=== PATIENT | female | born 1975 | race Caucasian/White ===

== ENCOUNTER 2021-04-19 14:51 | Outpatient (CLI) | payer BC, SELFPAY ==
--- NOTE | ~2021-04-19 | US_ITS ---
EXAMINATION: US soft tissue lower back DATE: 04/19/2021 15:51 INDICATION: Benign lipomatous neoplasm of skin and subcutaneous. Right lower back mass. TECHNIQUE: Multiple grayscale and Doppler ultrasound images of the lower back were obtained. COMPARISON: None FINDINGS: There is a 3.0 x 2.2 x 1.2 cm subcutaneous mass in the right lower back that demonstrates e qual echogenicity and echotexture to normal subcutaneous fat. IMPRESSION: 1. 3.0 cm subcutaneous mass in right lower back, likely a lipoma. Reviewed, dictated and finalized at location A. DEALER
== END 2021-04-19 14:52 | disposition home or self-care (01) ==
LOC: ANHIMG 15:00
PROVIDERS: PCP Family Medicine; Visit Provider Nurse Practitioner Family
DX: D17.1 Benign lipomatous neoplasm of skin and subcutaneous tissue of trunk (principal)
CPT/HCPCS: 76705

== ENCOUNTER 2021-05-12 09:37 | Outpatient (CLI) | payer BC, SELFPAY ==
[2021-05-12 10:50] LABS: Anion Gap 9 mmol/L (8-16); Blood Urea Nitrogen 12 mg/dL (7-17); Calcium 9.3 mg/dL (8.4-10.2); Carbon Dioxide 30 mmol/L (22-30); Chloride 100 mmol/L (98-107); Estimated Glomerular Filt Rate > 60; Glucose 92 mg/dL (65-110); Potassium 3.9 mmol/L (3.4-5.0); Sodium 139 mmol/L (137-145)
== END 2021-05-12 09:38 | disposition home or self-care (01) ==
LOC: ANHSURGERY 09:41
PROVIDERS: Anesthesiology; PCP Family Medicine; Visit Provider Surgery
DX: Z79.899 Other long term (current) drug therapy (principal); Z01.818 Encounter for other preprocedural examination
CPT/HCPCS: 36415; 80048

== ENCOUNTER 2021-05-19 01:04 | Day surgery (SDC) | payer BC, SELFPAY ==
[2021-05-11 14:07] VITALS: BMI 32.9
--- NOTE | 2021-05-11 14:25 | PC.NURSE ---
Report to the Outpatient Waiting Room, entrance under the green pavilion located off [facility], at time 11:30 on date 05/19/21. OR Time: 1:30. - You will be asked a series of questions to screen for COVID 19 for your protection. - A mask is required within the hospital. - No visitors are allowed at this time. Preoperative COVID Testing Requirements: No COVID Test needed if: (proof is required; if not received patient will have Rapid Test prior to entry) - Patient has received COVID Vaccine at least 14 days prior to procedure date or - Patient has positive COVID test result within last 90 days of surgery date. Patients may have clear liquids (water, carbonated beverages, clear teas, apple juice) until 3 hours prior to surgery (10:30) with a maximum of 20 ounces. - No food from midnight until time of surgery - Infants may have breast milk until 4 hours before surgery, infant formula 6 hours prior to surgery. Take the following medications with a SIP of water the morning of surgery: LEVOTHYROXINE, TOPIRAMATE Medications to discontinue per physician: VITAMINS/SUPPLEMENTS Date to take last dose: 05/15/21 Please no make-up, nail ukrainian, hairspray, perfume, deodorant, or body powder the day of surgery. No jewelry (including any body piercings) or valuables the day of surgery, leave them at home. Please take a shower or bath the night before, or the morning of, surgery with an antibacterial soap. Wear comfortable, loose fitting clothing. - Jewelry must be removed prior to entering the operating room. Rings and piercings that are not removed may be cut off. - The hospital will not accept responsibility for valuables. - Please leave all valuables, including medications, at home the day of surgery. If you are going home after surgery, a licensed over the road driver must drive you home. - NO public transportation without another adult. - We recommend that an adult stay with you for 24 hours following discharge. - We also recommend that you do not drive, make important decision, drink alcoholic beverages, or take any drugs that were not prescribed by your health care provider for at least 24 hours after your discharge time. Follow any additional instructions given to you from your surgeon. Telephone instructions given to ALEX KELLY and asked if any additional questions and then verbalized understanding. Patient advised to call surgeon office or pre surgery nurse liaison [phone] if any additional questions.
[2021-05-19 10:40] VITALS: BP 122/76; PULSE 55; RESP 16; TEMP 37.3; O2SAT 100
--- NOTE | 2021-05-19 11:30 | WPDANESEPPF ---
Anes - Initial Pre Proc Eval Procedure: Operation Date: 05/19/21 12:00 Proposed Procedures p Excisional Biopsy of Lower Right Back Mass - Siria Villeda MD Date/Time: 05/19/21 11:30 Surgeon: Siria Villeda MD Pre Op Diagnosis: right lower back mass (4x3cm) Patient Data Age: 45 Gender: F Height: 1.59 m Weight: 78.7 kg Last Vital Signs Temp 37.3 C 05/19/21 10:40 Pulse 55 L 05/19/21 10:40 Resp 16 05/19/21 10:40 BP 122/76 05/19/21 10:40 Pulse Ox 100 05/19/21 10:40 Allergies Allergy/AdvReac Type Severity Reaction Status Date / Time cefixime Allergy Unknown Rash Verified 05/19/21 10:11 clarithromycin Allergy Unknown Rash Verified 05/19/21 10:11 erythromycin base Allergy Unknown Rash Verified 05/19/21 10:11 levofloxacin Allergy Unknown Rash Verified 05/19/21 10:11 Penicillins Allergy Unknown Rash Verified 05/19/21 10:11 Home Medications Medication Instructions Recorded Confirmed Type levothyroxine 137 mcg tablet 137 mcg PO DAILY #90 tablet 02/21/21 05/19/21 Rx triamterene 75 See Rx Instructions .ROUTE 02/21/21 05/19/21 Rx mg-hydrochlorothiazide 50 mg tablet .COMPLEX #90 tablet lysine 500 mg PO DAILY 05/11/21 05/19/21 History omeprazole 20 mg PO DAILY 05/11/21 05/19/21 History topiramate 50 mg PO DAILY 05/11/21 05/19/21 History Patient hx anesthesia problems: post op nausea/vomiting Family hx anesthesia problems: none Results Review: All pre-operative results and documents have been reviewed as part of the pre-operative evaluation. [facility] Past Medical History Medical History BMI 33.0-33.9,adult BMI greater than 30 GERD (gastroesophageal reflux disease) Hx of migraines Hyperlipidemia Hypothyroidism, unspecified Pulmonary embolism Surgical History Surgical History H/O abdominoplasty H/O breast augmentation H/O tubal ligation Family History Family History Grandparent Cerebrovascular accident Family history of malignant neoplasm No family history of hypertension Father Family history of diabetes mellitus in first degree relative Diabetes mellitus Mother Diverticulitis Sibling Anxiety Social History Social History Social History: caffeine use: tea Smoking status: Never smoker Second hand tobacco smoke exposure: No Alcohol intake: current Alcohol use details: A COUPLE EVERY OTHER WEEKEND Substance use: never Substance use type: does not use Living arrangements: with family 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 Informed Consent: The patient's anesthetic plan and its attendant risks and benefits were discussed with the patient/family/POA. Questions were solicited and answers provided to the satisfaction of the patient/family/POA.
[2021-05-19] MEDS: SCOPOLAMINE 1.5 MG PATCH TRANSDERM (11:39)
--- NOTE | 2021-05-19 11:54 | WPDHPUPDATE1 ---
History and Physical Update Update Date/Time: 05/19/21 11:54 History and Physical has been reviewed, including an updated exam of the patient. There are NO changes in the patient's condition. Risks, benefits, and alternatives have been discussed and questions answered. Patient agrees to proceed with procedure.
[2021-05-19] MEDS: CLINDAMYCIN 900 MG/D5W 50 ML 900 MG/50 ML PIGGYBACK 50 MG IVPB (12:00)
[2021-05-19 12:43] VITALS: BP 102/75; PULSE 69; RESP 16; O2SAT 100
[2021-05-19 13:10] VITALS: BP 129/73; PULSE 55; RESP 16
--- NOTE | 2021-05-19 13:11 | W.PM.PROC2 ---
Procedure Note - Detailed Date of Procedure 05/19/21 Pre-op Diagnosis right lower back mass (4x3cm) Post-op Diagnosis same Procedure Performed Excisional biopsy right lower back mass, multi lobular lipoma involving the right lower back musculature Surgeon Siria Villeda MD Anesthesia MAC and local Indications 45-year-old female with moderate sized right lower back mass causing discomfort especially with certain movements Findings multi lobular lipoma imbedded within muscle Description of Procedure The patient was taken to the operating room and placed in the lateral position. After adequate induction of MAC anesthesia, the patient was prepped and draped in the normal sterile fashion. A time-out was then done to verify the patient's identity as well as the procedure being performed. I then localized the skin and subcutaneous tissue overlying the mass. I then made an incision over the area of the mass. This incision was taken down through the dermis into the subcutaneous tissue. It was noted at this point, the mass was deep to the subcutaneous tissue. Identifying the underlying muscle, it was noted the mass was within the muscle right on top of the bone. This was noted to be a moderate-sized multi lobular lipoma. Using very careful dissection, bluntly and with the Bovie cautery, I was able to remove the multi lobular lipoma in pieces. These pieces in aggregate will be sent to pathology for further review. Again, the posterior aspect of the mass was near the fascia of the bone. Once the area was complete excised, went ahead and copiously irrigated the area. Hemostasis was noted and no other pathology was seen. The subcutaneous tissue was closed with 3-0 Vicryl suture. The skin was then closed with 4-0 Monocryl subcuticular suture. Dermabond was placed on wound. Patient tolerated the procedure well and was alert and awake in the operating room postop. She will be sent to the recovery room in stable condition. Estimated Blood Loss 5 Drains No Packing No Pathology yes Complications No immediate complications Condition stable Disposition PACU
[2021-05-19 13:40] VITALS: BP 120/69; PULSE 60; RESP 16
[2021-05-19] MEDS: LACTATED RINGERS 1,000 ML 30 ML IV CONT (13:43)
== END 2021-05-19 13:50 | disposition home or self-care (01) ==
PROVIDERS: PCP Family Medicine; Visit Provider Surgery
PROC: (CPT 21931; principal; 2021-05-19 12:00)
DX: D17.1 Benign lipomatous neoplasm of skin and subcutaneous tissue of trunk (principal); E78.5 Hyperlipidemia, unspecified; E03.9 Hypothyroidism, unspecified; K21.9 Gastro-esophageal reflux disease without esophagitis; Z86.711 Personal history of pulmonary embolism; E66.9 Obesity, unspecified; Z68.31 Body mass index [BMI] 31.0-31.9, adult
CPT/HCPCS: 21931; 36415; 80048; 88304; A9270; J2250; J2704; J3010; J7120

== ENCOUNTER 2022-08-22 14:36 | Outpatient (CLI) | payer OTHER, SELFPAY ==
--- NOTE | ~2022-08-22 | US_ITS ---
EXAMINATION: US pelvic complete w TV DATE: 08/22/2022 15:43 INDICATION: Abnormal cytologic findings. Comparison:No prior studies for comparison. TECHNIQUE: Multiple transabdominal and endovaginal sonographic images of the pelvis performed. FINDINGS: The uterus measures 6.7 x 3.7 x 4.1 cm. The endometrial complex measures 5 mm. The right ovary measures 3.2 x 1.6 x 1.9 cm and the left ovary measures 2.9 x 1.3 x 1.9 cm. There ar e small follicles in each ovary. Normal doppler signal in both ovaries. There is no free fluid in the pelvis. There are no abnormal masses seen on either side. IMPRESSION: 1. Unremarkable pelvic ultrasound. Reviewed, dictated and finalized at location L.
== END 2022-08-22 14:37 | disposition home or self-care (01) ==
PROVIDERS: PCP Family Medicine; Visit Provider Obstetrics & Gynecology
DX: R87.619 Unspecified abnormal cytological findings in specimens from cervix uteri (principal)
CPT/HCPCS: 76830; 76856

== ENCOUNTER 2023-04-10 02:22 | Day surgery (SDC) | payer OTHER, SELFPAY ==
[2023-02-19 10:20] VITALS: BMI 28.7
--- NOTE | 2023-02-23 14:59 | SUR.PREOP ---
02/23/23 1330 Returned patient's call. patient complained of sore throat, headache, and congestion. Discussed up coming procedure on 02/26. Patient denied anyone in her household being sick or testing positive to Covid. Patient said she is around a lot of sick people so hard to say if she was exposed. Patient decided to re-schedule her procedure just in case. Patient's procedure moved to 04/10.
--- NOTE | 2023-03-26 08:30 | SUR.PREOP ---
Spoke with patient and verified that she had the new date and time for her procedure that had been rescheduled. Per patient no changes to medical hx or medications.
--- NOTE | 2023-04-09 09:52 | SUR.PREOP ---
Patient called regarding upcoming procedure. Reviewed preop instructions, appointment times, and procedure prep.
[2023-04-10 06:24] VITALS: BP 131/82; PULSE 62; RESP 16; TEMP 36.3; O2SAT 100; BMI 29.1
[2023-04-10] MEDS: LACTATED RINGERS 1,000 ML 150 ML IV CONT (06:33)
--- NOTE | 2023-04-10 07:13 | WPDANESEPPF ---
Anes - Initial Pre Proc Eval Procedure: Operation Date: 04/10/23 07:30 Proposed Procedures p Screening Colonoscopy - Rodger Wallis MD Date/Time: 04/10/23 07:13 Surgeon: Rodger Wallis MD Pre Op Diagnosis: neoplasm screening Patient Data Age: 47 Gender: F Height: 1.59 m Weight: 73.5 kg Last Vital Signs Temp 97.3 F L 04/10/23 06:24 Pulse 62 04/10/23 06:24 Resp 16 04/10/23 06:24 BP 131/82 04/10/23 06:24 Pulse Ox 100 04/10/23 06:24 O2 Del Method Room Air 04/10/23 06:24 Allergies Allergy/AdvReac Type Severity Reaction Status Date / Time cefixime Allergy Unknown Rash Verified 04/10/23 06:23 clarithromycin Allergy Unknown Rash Verified 04/10/23 06:23 erythromycin base Allergy Unknown Rash Verified 04/10/23 06:23 levofloxacin Allergy Unknown Rash Verified 04/10/23 06:23 Penicillins Allergy Unknown Rash Verified 04/10/23 06:23 Home Medications Medication Instructions Recorded Confirmed Type levothyroxine 137 mcg tablet 137 mcg PO DAILY #90 tabs 05/10/22 04/10/23 Rx hydrochlorothiazide 50 mg tablet 50 mg PO DAILY #90 tabs 06/19/22 04/10/23 Rx triamterene 100 mg capsule 100 mg PO DAILY #90 caps 06/19/22 04/10/23 Rx Patient hx anesthesia problems: post op nausea/vomiting Family hx anesthesia problems: none Results Review: All pre-operative results and documents have been reviewed as part of the pre-operative evaluation. [facility] Past Medical History Medical History BMI 31.0-31.9,adult BMI 33.0-33.9,adult BMI greater than 30 GERD (gastroesophageal reflux disease) Hx of migraines Hyperlipidemia Hypothyroidism, unspecified Pulmonary embolism Surgical History Surgical History H/O abdominoplasty H/O breast augmentation H/O tubal ligation History of excision of mass S/P dilation and curettage S/P endometrial ablation Family History Family History Grandparent Cerebrovascular accident Family history of malignant neoplasm No family history of hypertension Father Family history of diabetes mellitus in first degree relative Diabetes mellitus Mother Diverticulitis Hypertension Sibling Anxiety Social History Social History Social History: caffeine use: tea Smoking status: Never smoker Second hand tobacco smoke exposure: No Alcohol intake: current Alcohol use details: occasional, 1-2 times per month Substance use: never Substance use type: does not use Lack of Transportation: No Lack of Food: Never True Current Housing: I Have Housing Concerned About Future Housing: No Difficulty Paying Gas/Electric Bills: No Difficulty Paying for Meds: No Currently Unemployed: No Education: Associate Degree Difficulty w/ Childcare or Family Care: No Living arrangements: with family Occupation/Education: occupation 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 Informed Consent: The patient's anesthetic plan and its attendant risks and benefits were discussed with the patient/family/POA. Questions were solicited and answers provided to the satisfaction of the patient/family/POA.
--- NOTE | 2023-04-10 07:24 | PM.HPGS ---
History of Present Illness History of Present Illness Consent: Risks, benefits, and alternatives have been discussed and questions answered. Patient agrees to proceed with procedure. Chief complaint: neoplasm screening Narrative: Ana Padilla is a 47 year old female here for first screening colonoscopy Review of Systems Constitutional: Constitutional: Denies headache(s) and Denies weakness Eyes: Eyes: Denies blurry vision ENT: Reports Normal hearing present, Denies headache(s) and Denies neck pain Cardiovascular: Cardiovascular: Denies chest pain and Denies dyspnea Respiratory: Respiratory: Denies dyspnea Gastrointestinal: Gastrointestinal: Reports no additional gastrointestinal complaints Genitourinary: Genitourinary: Denies dysuria Musculoskeletal: Musculoskeletal: Denies neck pain Integumentary/Breasts: Skin/Breast: Denies dry skin Neurologic: Reports Normal hearing present, Denies headache(s) and Denies weakness Psychiatric: Psychiatric: Denies anxiety Endocrine: Endocrine: Denies change in body appearance Hematologic/Lymphatic: Hematologic/Lymphatic: Denies easy bleeding Allergic/Immunologic: Allergic/Immunologic: Denies urticaria PMFSH Past Medical History Medical History BMI 31.0-31.9,adult BMI 33.0-33.9,adult BMI greater than 30 GERD (gastroesophageal reflux disease) Hx of migraines Hyperlipidemia Hypothyroidism, unspecified Pulmonary embolism Surgical History Surgical History H/O abdominoplasty H/O breast augmentation H/O tubal ligation History of excision of mass S/P dilation and curettage S/P endometrial ablation Family History Family History Grandparent Cerebrovascular accident Family history of malignant neoplasm No family history of hypertension Father Family history of diabetes mellitus in first degree relative Diabetes mellitus Mother Diverticulitis Hypertension Sibling Anxiety Social History Social History Social History: caffeine use: tea Smoking status: Never smoker Second hand tobacco smoke exposure: No Alcohol intake: current Alcohol use details: occasional, 1-2 times per month Substance use: never Substance use type: does not use Lack of Transportation: No Lack of Food: Never True Current Housing: I Have Housing Concerned About Future Housing: No Difficulty Paying Gas/Electric Bills: No Difficulty Paying for Meds: No Currently Unemployed: No Education: Associate Degree Difficulty w/ Childcare or Family Care: No Living arrangements: with family Occupation/Education: occupation 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 Gender identity (if verbalized by the patient): Female Spiritual care concerns: No Meds Home Medications and Allergies Home Medications Medication Instructions Recorded Confirmed Type levothyroxine 137 mcg tablet 137 mcg PO DAILY #90 tabs 05/10/22 04/10/23 Rx hydrochlorothiazide 50 mg tablet 50 mg PO DAILY #90 tabs 06/19/22 04/10/23 Rx triamterene 100 mg capsule 100 mg PO DAILY #90 caps 06/19/22 04/10/23 Rx Allergies Allergy/AdvReac Type Severity Reaction Status Date / Time cefixime Allergy Unknown Rash Verified 04/10/23 06:23 clarithromycin Allergy Unknown Rash Verified 04/10/23 06:23 erythromycin base Allergy Unknown Rash Verified 04/10/23 06:23 levofloxacin Allergy Unknown Rash Verified 04/10/23 06:23 Penicillins Allergy Unknown Rash Verified 04/10/23 06:23 Vital Signs Vital Signs - 24 hr 04/10/23 06:24 Temperature 97.3 F L Pulse Rate 62 Respiratory Rate 16 Blood Pressure 131/82 Pulse Oximetry 100 Oxygen Delivery Room Air Exam Const: General: comfortable and no acute distress HENMT: Face/N
[2023-04-10 07:40] VITALS: BP 96/65; PULSE 82; RESP 16; O2SAT 100
[2023-04-10 07:50] VITALS: BP 131/90; PULSE 75; RESP 22; O2SAT 99
[2023-04-10 08:00] VITALS: BP 132/90; PULSE 62; RESP 25; O2SAT 100
== END 2023-04-10 08:05 | disposition home or self-care (01) ==
PROVIDERS: PCP Family Medicine; Visit Provider Internal Medicine Gastroenterology
PROC: 0DJD8ZZ Inspection of Lower Intestinal Tract, Via Natural or Artificial Opening Endoscopic (ICD-10-PCS; CPT 45378; principal; 2023-04-10 07:30)
DX: Z12.11 Encounter for screening for malignant neoplasm of colon (principal); E03.9 Hypothyroidism, unspecified; F10.90 Alcohol use, unspecified, uncomplicated; Z79.899 Other long term (current) drug therapy
CPT/HCPCS: 45378; J2704; J7120